=== PATIENT | female | born 1945 | race Hispanic/Latino ===

== ENCOUNTER 2020-02-23 06:26 | Emergency (ER) | payer MEDICARE ==
--- NOTE | 2020-02-23 07:21 | Emergency Department Report ---
ED General Adult HPI - General Chief complaint: Fall Stated complaint: FALL/RT HAND STANDING POSITION Time Seen by Provider: 02/23/20 06:53 Source: EMS Mode of arrival: Ambulatory Limitations: No Limitations - History of Present Illness Initial comments: Patient is a 74-year-old female who is a somewhat poor historian. She admits that she is having frequent falls. Apparently she had home health in the past but not currently. She states that she fell 2 weeks ago and "cracked" her left wrist. She went to her primary care doctor rather than the emergency department at that time. She is wearing a Velcro splint. She states that she also fell and injured her face. Last night she tripped on the way to the bathroom injuring her right hand. She denies any other injury. She specifically denies any back or neck problems. She did not hit her head. She was in her usual state of health when the event occurred. She has no other complaints at the time of my evaluation. However, the triage note does report that the patient felt weak and dizzy. She did not lose consciousness. Thus her history is somewhat variable. -: Gradual Location: right, upper extremity Radiation: non-radiation Severity scale (0 -10): 5 Quality: aching Consistency: intermittent Improves with: none Worsens with: movement Associated Symptoms: denies other symptoms (Or as per triage weak and dizzy) - Related Data Previous Rx's Medication Instructions Recorded Last Taken Type HYDROcodone/APAP 5-325 [[place] 1 each PO Q6HR PRN #10 tablet 04/21/14 Unknown Rx 5/325] Ondansetron [Zofran Odt] 8 mg PO 4XD #20 tab.rapdis 04/21/14 Unknown Rx Prednisone [Prednisone 10 mg 10 mg PO .TAPER #1 tab.ds.pk 04/21/14 Unknown Rx (6-Day Pack, 21 Tabs)] Sulfamethoxazole/Trimethoprim 1 each PO BID #14 tablet 04/21/14 Unknown Rx [Bactrim Ds] traMADoL [Ultram 50 MG tab] 50 mg PO Q8HR PRN #7 tablet 02/23/20 Unknown Rx Allergies Allergy/AdvReac Type Severity Reaction Status Date / Time codeine phosphate Allergy Unknown Verified 04/21/14 08:52 [From Tylenol-Codeine] acetaminophen AdvReac Mild Nausea Verified 04/21/14 15:04 [From Tylenol-Codeine] ED Review of Systems ROS: Stated complaint: FALL/RT HAND STANDING POSITION Other details as noted in HPI ED Past Medical Hx - Past Medical History Hx Hypertension: Yes Hx Diabetes: Yes Hx Psychiatric Treatment: Yes (depression) Additional medical history: high cholesterol - Surgical History Additional Surgical History: tonsillectomy - Social History Smoking Status: Never Smoker Substance Use Type: None - Medications Home Medications: Home Medications Medication Instructions Recorded Confirmed Last Taken Type HYDROcodone/APAP 5-325 [[place] 1 each PO Q6HR PRN #10 tablet 04/21/14 Unknown Rx 5/325] Ondansetron [Zofran Odt] 8 mg PO 4XD #20 tab.rapdis 04/21/14 Unknown Rx Prednisone [Prednisone 10 mg 10 mg PO .TAPER #1 tab.ds.pk 04/21/14 Unknown Rx (6-Day Pack, 21 Tabs)] Sulfamethoxazole/Trimethoprim 1 each PO BID #14 tablet 04/21/14 Unknown Rx [Bactrim Ds] traMADoL [Ultram 50 MG tab] 50 mg PO Q8HR PRN #7 tablet 02/23/20 Unknown Rx ED Physical Exam - General Limitations: No Limitations General appearance: alert, in no apparent distress - Head Head exam: Present: atraumatic, normocephalic - Eye Eye exam: Present: normal appearance, other (Infraorbital resolving ecchymosis on the right no deformity) - ENT ENT exam: Present: mucous membranes moist - Neck Neck exam: Present: normal inspection. Absent: tenderness, meningismus - Respiratory Respiratory exam: Present: normal lung sounds bilaterally. Absent: respiratory distress - Cardiovascular Cardiovascular Exam: Present: regular rate, normal rhythm. Absent: systolic murmur, diastolic murmur, rubs, gallop - GI/Abdominal GI/Abdominal exam: Present: soft, normal bowel sounds. Absent: distended, tenderness, guarding, rebound, rigid - Extremities Exam Extremities exam: Present: other (The right hand is quite swollen to involve the dorsum of the hand and the fingers. Neurovascular exam is grossly intact.) - Back Exam Back exam: Present: normal inspection. Absent: CVA tenderness (R), CVA tend erness (L), muscle spasm, paraspinal tenderness, vertebral tenderness - Neurological Exam Neurological exam: Present: alert, oriented X3, CN II-XII intact. Absent: motor sensory deficit - Psychiatric Psychiatric exam: Present: normal affect, normal mood - Skin Skin exam: Present: warm, dry, intact, ecchymosis (As above). Absent: rash ED Course Vital Signs 02/23/20 02/23/20 02/23/20 06:54 06:56 11:29 Temperature 98.4 F 98.4 F Pulse Rate 77 20 L 88 Respiratory 20 20 20 Rate Blood Pressure 177/75 Blood Pressure 177/75 178/71 [Left] O2 Sat by Pulse 99 99 100 Oximetry - Reevaluation(s) Reevaluation #1: Patient has an elevated BUN and creatinine. She is volume depleted. She will be given IV fluids. 02/23/20 09:34 02/23/20 13:05 Initially, placed in a ulnar gutter splint. However swelling has subsided. Will replace this with a Velcro. Reevaluation #2: Patient now appears much better hydrated. 02/23/20 13:05 Reevaluation #3: Patient tells me she has 2 caregivers at home. 02/23/20 13:07 ED Medical Decision Making - Lab Data Result diagrams: 02/23/20 07:24 02/23/20 07:24 Laboratory Results - last 24 hr 02/23/20 02/23/20 02/23/20 07:24 07:24 07:42 WBC 10.7 RBC 3.93 Hgb 12.0 Hct 35.3 MCV 90 MCH 31 MCHC 34 RDW 12.3 L Plt Count 209 Lymph % (Auto) 11.8 L [place] % (Auto) 6.9 Eos % (Auto) 1.2 Baso % (Auto) 0.7 Lymph # 1.3 [place] # 0.7 Eos # 0.1 Baso # 0.1 Seg Neutrophils % 79.4 H Seg Neutrophils # 8.5 H Sodium 137 Potassium 3.9 Chloride 98.0 Carbon Dioxide 22 Anion Gap 21 BUN 45 H Creatinine 1.8 H Estimated GFR 28 BUN/Creatinine Ratio 25 Glucose 137 H Calcium 9.4 Urine Color Yellow Urine Turbidity Clear Urine pH 5.0 Ur Specific [place] 1.009 Urine Protein 100 mg/dl Urine Glucose (UA) Neg Urine Ketones Neg Urine Blood Mod Urine Nitrite Neg Urine Bilirubin Neg Urine Urobilinogen < 2.0 Ur Leukocyte Esterase Neg Urine WBC (Auto) 1.0 Urine RBC (Auto) 5.0 U Epithel Cells (Auto) 4.0 Urine Bacteria (Auto) 1+ Urine Mucus Few - EKG Data EKG shows normal: sinus rhythm, axis, intervals, QRS complexes Rate: normal - EKG Data Interpretation: nonspecific ST-T wave mar - Radiology Data Radiology results: report reviewed, image reviewed IMPRESSION: The bones are diffusely osteopenic with no gross fracture identifie d. There is mild soft tissue swelling along the dorsum of the hand and there is apparent erosive change along the radial aspect of the index finger PIP joint which could be seen with an inflammatory arthropathy such as gout. There is otherwise relatively mild degenerative arthrosis throughout the hand. The hand is really quite swollen. I am concerned there may be an occult fracture. Critical care attestation.: If time is entered above; I have spent that time in minutes in the direct care of this critically ill patient, excluding procedure time. ED Disposition Clinical Impression: Prerenal azotemia, Volume depletion Sprain of hand, right Qualifiers: Encounter type: initial encounter Qualified Code(s): S63.91XA - Sprain of unspecified part of right wrist and hand, initial encounter Disposition: DC-01 TO HOME OR SELFCARE Is pt being admited?: No Does the pt Need Aspirin: No Condition: Stable Instructions: Hand Sprain (ED), Dehydration (ED) Additional Instructions: Increase fluids. Follow-up with your primary care provider. Follow-up with orthopedic Dr. Oneill. Prescriptions: traMADoL [Ultram 50 MG tab] 50 mg PO Q8HR PRN #7 tablet PRN Reason: Pain Referrals: PRIMARY MD YANNI [Primary Care Provider] - 2-3 Days YVONNE ONEILL MD [Staff Physician] - 3-5 Days Time of Disposition: 13:06
[2020-02-23 08:09] LABS: Bacteria,Urine 1+ /HPF (Negative); Bilirubin,Urine NEG (Negative); Blood,Urine MOD (Negative); Color,Urine Yellow (Yellow); Mucus,Urine FEW /HPF; Urobilinogen,Urine < 2.0 mg/dL (<2.0)
--- NOTE | 2020-02-23 08:13 | XRay Report ---
Right hand-3 views INDICATION: MAIN: trauma/fall. COMPARISON: None. IMPRESSION: The bones are diffusely osteopenic with no gross fracture identified. There is mild soft tissue swelling along the dorsum of the hand and there is apparent erosive change along the radial a spect of the index finger PIP joint which could be seen with an inflammatory arthropathy such as gout . There is otherwise relatively mild degenerative arthrosis throughout the hand. Signer Name: Javier Regalado MD Signed: 02/23/2020 8:09 AM Workstation Name: [id number]
[2020-02-23 08:22] LABS: Basophils # (Auto) 0.1 K/mm3 (0.0-0.1); Basophils % (Auto) 0.7 % (0.0-1.8); Eosinophils # (Auto) 0.1 K/mm3 (0.0-0.4); Eosinophils % (Auto) 1.2 % (0.0-4.3); Hematocrit 35.3 % (30.3-42.9); Lymphocytes # (Auto) 1.3 K/mm3 (1.2-5.4); Lymphocytes % (Auto) 11.8 % (13.4-35.0); Mean Corpuscular HGB Conc 34 % (30-34); Mean Corpuscular Volume 90 fl (79-97); Monocytes # (Auto) 0.7 K/mm3 (0.0-0.8); Monocytes % (Auto) 6.9 % (0.0-7.3); Platelet Count 209 K/mm3 (140-440); Red Blood Count 3.93 M/mm3 (3.65-5.03); Red Cell Distribution Width 12.3 % (13.2-15.2)
[2020-02-23 08:43] LABS: Calcium 9.4 mg/dL (8.4-10.2)
[2020-02-23] MEDS ORDERED: SODIUM CHLORIDE 0.9% 1000 ML 1,000 ML IV ONE (09:25)
[2020-02-23 11:29] VITALS: BP 178/71
[2020-02-23] MEDS ORDERED: traMADol 50 MG TAB PO ONE (12:13)
[2020-02-23] MEDS ORDERED: hydrALAZINE 20 MG/1 ML INJ IV ONE (15:29)
== END 2020-02-23 13:45 | disposition home or self-care (01) ==
LOC: ED 06:26
DX: S63.91XA Sprain of unspecified part of right wrist and hand, initial encounter (principal); R79.89 Other specified abnormal findings of blood chemistry; E86.9 Volume depletion, unspecified; R42 Dizziness and giddiness; I10 Essential (primary) hypertension; E11.9 Type 2 diabetes mellitus without complications; F32.9 Major depressive disorder, single episode, unspecified; Z90.89 Acquired absence of other organs; Z79.899 Other long term (current) drug therapy; Z88.8 Allergy status to other drugs, medicaments and biological substances; Z91.81 History of falling; W01.0XXA Fall on same level from slipping, tripping and stumbling without subsequent striking against object, initial encounter; Y93.89 Activity, other specified; Y92.89 Other specified places as the place of occurrence of the external cause; Y99.8 Other external cause status
CPT/HCPCS: 36415; 80048; 81001; 85025; 93005; 96360; 96361

== ENCOUNTER 2020-09-03 19:00 | Emergency (ER) | payer MEDICARE ==
--- NOTE | 2020-09-03 19:27 | Event Note ---
ED Screening Note ED Screening Note: States she got dizzy and fell Reports she had a brief episode of loss of consciousness No chest pain or shortness of breath She is complaining of headache and lower back pain This initial assessment/diagnostic orders/clinical plan/treatment(s) is/are subject to change based on patients health status, clinical progression and re- assessment by fellow clinical providers in the ED. Further treatment and workup at subsequent clinical providers discretion. Patient/guardian urged not to elope from the ED as their condition may be serious if not clinically assessed and managed. Initial orders include: Labs, EKG, CT
--- NOTE | 2020-09-03 20:27 | Cat Scan Report ---
CT BRAIN: 09/03/2020 INDICATION / CLINICAL INFORMATION: Trauma. COMPARISON: None available. FINDINGS: BRAIN/INTRACRANIAL STRUCTURES: Unenhanced CT images of the brain demonstrate no evidence of acute int racranial abnormality. Ventricles and sulci are prominent in size, consistent with prominent diffuse cerebral atrophy. There is no evidence of acute ischemic injury, hemorrhage, or mass. There are no abnormal extra-axial fluid collections. Atherosclerotic vascular calcifications are present in the distal internal caroti d arteries and vertebral arteries. EXTRACRANIAL STRUCTURES: Unremarkable. IMPRESSION: No acute abnormality. Chronic and age-related changes All CT scans at this location are performed using dose reduction to ALARA by means of automated expos ure control. Signer Name: Cyo Melara MD Signed: 09/03/2020 8:23 PM Workstation Name: [id number]
--- NOTE | 2020-09-03 20:30 | Cat Scan Report ---
. CT CERVICAL SPINE: 09/03/2020 INDICATION / CLINICAL INFORMATION: Trauma. COMPARISON: None available. FINDINGS: CT images of the cervical spine were obtained. Images are evaluated in the axial, coronal, and sagitt al planes. There is no evidence of acute traumatic injury. Degenerative disc changes are present throughout the cervical spine, most pronounced at C3-4. CRANIOCERVICAL JUNCTION: Unremarkable. PARASPINAL STRUCTURES: Unremarkable Incidental note is made of diffuse enlargement of the thyroid consistent with marked goiter. This is only partially included on this cervical spine exam. It appears to have a substernal extension. Incidental note is also made of asymmetric positioning of the vocal cords, suggestive of left vocal c ord paralysis. This may be related to the presence of the large thyroid goiter, although this assessm ent cannot be further evaluated on cervical spine CT. IMPRESSION: No acute abnormality. All CT scans at this location are performed using dose reduction to ALARA by means of automated expos ure control. Signer Name: Coy Melara MD Signed: 09/03/2020 8:26 PM Workstation Name: [id number]
[2020-09-03 20:35] LABS: Basophils # (Auto) 0.1 K/mm3 (0.0-0.1); Basophils % (Auto) 0.3 % (0.0-1.8); Eosinophils # (Auto) 0.2 K/mm3 (0.0-0.4); Eosinophils % (Auto) 1.2 % (0.0-4.3); Hematocrit 32.3 % (30.3-42.9); Hemoglobin 10.3 gm/dl (10.1-14.3); Lymphocytes # (Auto) 1.1 K/mm3 (1.2-5.4); Lymphocytes % (Auto) 6.2 % (13.4-35.0); Mean Corpuscular HGB Conc 32 % (30-34); Mean Corpuscular Volume 91 fl (79-97); Monocytes # (Auto) 0.7 K/mm3 (0.0-0.8); Monocytes % (Auto) 3.7 % (0.0-7.3); Platelet Count 204 K/mm3 (140-440); Red Blood Count 3.54 M/mm3 (3.65-5.03); Red Cell Distribution Width 14.6 % (13.2-15.2)
--- NOTE | 2020-09-03 20:35 | Cat Scan Report ---
CT LUMBAR SPINE: 09/03/2020 INDICATION / CLINICAL INFORMATION: Trauma. COMPARISON: None available. FINDINGS: CT images of the lumbar spine were obtained. Images are evaluated in the axial, coronal, and sagittal planes. Mild right convex scoliosis is present. Mild and moderate degenerative disc and facet changes are pre sent throughout the lumbar spine. There are linear lucency is present through the sacral ala bilaterally, consistent with bilateral sac ral fractures. There are also fractures of the transverse processes of L5 vertebral. PARASPINAL STRUCTURES: Unremarkable. IMPRESSION: Bilateral sacral ala fractures. Bilateral L5 transverse process fractures All CT scans at this location are performed using dose reduction to ALARA by means of automated expos ure control. Signer Name: Coy Melara MD Signed: 09/03/2020 8:30 PM Workstation Name: [id number]
[2020-09-03 20:50] LABS: INR 1.12 (0.87-1.13)
[2020-09-03 21:20] LABS: Albumin 3.1 g/dL (3.9-5); Calcium 9.3 mg/dL (8.4-10.2)
--- NOTE | 2020-09-04 04:08 | Emergency Department Report ---
<ALDO VILLA - Last Filed: 09/04/20 05:30> ED Fall HPI - General Chief Complaint: Fall Stated Complaint: BACK PAIN Time Seen by Provider: 09/03/20 19:26 - Related Data Previous Rx's Medication Instructions Recorded Last Taken Type HYDROcodone/APAP 5-325 [[place] 1 each PO Q6HR PRN #10 tablet 04/21/14 Unknown Rx 5/325] Ondansetron [Zofran Odt] 8 mg PO 4XD #20 tab.rapdis 04/21/14 Unknown Rx Prednisone [Prednisone 10 mg 10 mg PO .TAPER #1 tab.ds.pk 04/21/14 Unknown Rx (6-Day Pack, 21 Tabs)] Sulfamethoxazole/Trimethoprim 1 each PO BID #14 tablet 04/21/14 Unknown Rx [Bactrim Ds] traMADoL [Ultram 50 MG tab] 50 mg PO Q8HR PRN #7 tablet 02/23/20 Unknown Rx Allergies Allergy/AdvReac Type Severity Reaction Status Date / Time codeine phosphate Allergy Unknown Verified 04/21/14 08:52 [From Tylenol-Codeine] acetaminophen AdvReac Mild Nausea Verified 04/21/14 15:04 [From Tylenol-Codeine] ED Past Medical Hx - Medications Home Medications: Home Medications Medication Instructions Recorded Confirmed Last Taken Type HYDROcodone/APAP 5-325 [[place] 1 each PO Q6HR PRN #10 tablet 04/21/14 Unknown Rx 5/325] Ondansetron [Zofran Odt] 8 mg PO 4XD #20 tab.rapdis 04/21/14 Unknown Rx Prednisone [Prednisone 10 mg 10 mg PO .TAPER #1 tab.ds.pk 04/21/14 Unknown Rx (6-Day Pack, 21 Tabs)] Sulfamethoxazole/Trimethoprim 1 each PO BID #14 tablet 04/21/14 Unknown Rx [Bactrim Ds] traMADoL [Ultram 50 MG tab] 50 mg PO Q8HR PRN #7 tablet 02/23/20 Unknown Rx ED Course - Reevaluation(s) Reevaluation #1: 09/04/20 05:31 Morbidly obese female with mechanical fall. Found to have bilateral L5 transverse process fractures, and sacral oneida fractures. These are typically nonoperative. She is moving 4 extremities. However, she is morbidly obese, and not able to ambulate without significant assistance. At the moment, even with a 1 person assist, not able to get up out of a chair/wheelchair. This is likely an unsafe discharge, secondary to obesity, and deconditioning. There may also be an acute pain component present at this time. Laboratory studies show acute on chronic renal insufficiency. She is not hypoxic. Physician early childhood assistant does not suspect acute congestive heart failure. We do not anticipate need for transfer, however, physician early childhood assistant will discuss with orthopedic/trauma at tertiary care facility. If managed services sales consultant advises that emergent transfer is not indicated, which we anticipate, would consider it reasonable to admit this patient to the hospital for supportive care, pain control, management of acute on chronic renal insufficiency, and case management placement, for safe disposition. ED Medical Decision Making - Lab Data Result diagrams: 09/03/20 20:18 09/03/20 20:18 Vital Signs 09/03/20 19:23 Temperature 97.9 F Pulse Rate 76 Respiratory 20 Rate Blood Pressure 130/85 O2 Sat by Pulse 97 Oximetry Lab Results 09/03/20 09/03/20 09/03/20 Range/Units 20:18 20:18 20:18 WBC 18.0 H (4.5-11.0) K/mm3 RBC 3.54 L (3.65-5.03) M/mm3 Hgb 10.3 (10.1-14.3) gm/dl Hct 32.3 (30.3-42.9) % MCV 91 (79-97) fl MCH 29 (28-32) pg MCHC 32 (30-34) % RDW 14.6 (13.2-15.2) % Plt Count 204 (140-440) K/mm3 Lymph % (Auto) 6.2 L (13.4-35.0) % [place] % (Auto) 3.7 (0.0-7.3) % Eos % (Auto) 1.2 (0.0-4.3) % Baso % (Auto) 0.3 (0.0-1.8) % Lymph # (Auto) 1.1 L (1.2-5.4) K/mm3 [place] # (Auto) 0.7 (0.0-0.8) K/mm3 Eos # (Auto) 0.2 (0.0-0.4) K/mm3 Baso # (Auto) 0.1 (0.0-0.1) K/mm3 Seg Neutrophils % 88.6 H (40.0-70.0) % Seg Neutrophils # 15.9 H (1.8-7.7) K/mm3 PT 14.2 (12.2-14.9) Sec. INR 1.12 (0.87-1.13) APTT 31.0 (24.2-36.6) Sec. Sodium 137 (137-145) mmol/L Potassium 4.2 (3.6-5.0) mmol/L Chloride 101.5 (98-107) mmol/L Carbon Dioxide 23 (22-30) mmol/L Anion Gap 17 mmol/L BUN 41 H (7-17) mg/dL Creatinine 3.2 H (0.6-1.2) mg/dL Estimated GFR 14 ml/min BUN/Creatinine Ratio 13 % Glucose 215 H (65-100) mg/dL Calcium 9.3 (8.4-10.2) mg/dL Magnesium 1.90 (1.7-2.3) mg/dL Total Bilirubin 0.30 (0.1-1.2) mg/dL AST 38 (5-40) units/L ALT 22 (7-56) units/L Alkaline Phosphatase 125 (35-129) units/L Total Creatine Kinase 630 H (30-135) units/L Troponin T 0.021 (0.00-0.029) ng/mL NT-Pro-B Natriuret Pep 2591 H (0-900) pg/mL Total Protein 7.2 (6.3-8.2) g/dL Albumin 3.1 L (3.9-5) g/dL Albumin/Globulin Ratio 0.8 % - Radiology Data Radiology results: report reviewed, image reviewed CT LUMBAR SPINE: 09/03/2020 INDICATION / CLINICAL INFORMATION: Trauma. COMPARI SON: None available. FINDINGS: CT images of the lumbar spine were obtained. Images are evaluated in the axial, coronal, and sagittal planes. Mild right convex scoliosis is present. Mild and moderate degenerative disc and facet changes are present throughout the lumbar spine. There are linear lucency is present through the sacral ala bilaterally, consistent with bilateral sacral fractures. There are also fractures of the transverse processes of L5 vertebral. PARASPINAL STRUCTURES: Unremarkable. IMPRESSION: Bilateral sacral ala fractures. Bilateral L5 transverse process fractures All CT scans at this location are performed using dose reduction to ALARA by means of automated expos ure control. Signer Name: Coy Melara MD Signed: 09/03/2020 7:30 PM Workstation Name: [id number] CT BRAIN: 09/03/2020 INDICATION / CLINICAL INFORMATION: Trauma. COMPARISON: None available. FINDINGS: BRAIN/INTRACRANIAL STRUCTURES: Unenhanced CT images of the brain demonstrate no evidence of acute intracranial abnormality. Ventricles and sulci are prominent in size, consistent with prominent diffuse cerebral atrophy. There is no evidence of acute ischemic injury, hemorrhage, or mass. There are no abnormal extra-axial fluid collections. Atherosclerotic vascular calcifications are present in the distal internal carotid arteries and vertebral arteries. EXTRACRANIAL STRUCTURES: Unremarkable. IMPRESSION: No acute abnormality. Chronic and age-related changes All CT scans at this location are performed using dose reduction to ALARA by means of automated exposure control. Signer Name: Coy Melara MD Signed: 09/03/2020 7:23 PM Workstation Name: [id number] . CT CERVICAL SPINE: 09/03/2020 INDICATION / CLINICAL INFORMATION: Trauma. COMPARISON: None available. FINDINGS: CT images of the cervical spine were obtained. Images are evaluated in the axial, coronal, and sagittal planes. There is no evidence of acute traumatic injury. Degenerative disc changes are present throughout the cervical spine, most pronounced at C3-4. CRANIOCERVICAL JUNCTION: Unremarkable. PARASPINAL STRUCTURES: Unremarkable Incidental note is made of diffuse enlargement of the thyroid consistent with marked goiter. This is only partially included on this cervical spine exam. It appears to have a substernal extension. Incidental note is also made of asymmetric positioning of the vocal cords, suggestive of left vocal cord paralysis. This may be related to the presence of the large thyroid goiter, although this assessment cannot be further evaluated on cervical spine CT. IMPRESSION: No acute abnormality. All CT scans at this location are performed using dose reduction to ALARA by means of automated exposure control. Signer Name: Coy Melara MD Signed: 09/03/2020 7:26 PM Workstation Name: [id number] ED Disposition Clinical Impression: Sacral fracture, closed, Lumbar transverse process fracture Disposition: DC/TX-70 ANOTHER TYPE [facility] Condition: Stable Instructions: Transverse Process Fracture, Lumbar Spine Fracture <ISABELLA ACEVEDO - Last Filed: 09/04/20 07:04> ED Fall HPI - General Source: patient Mode of arrival: Stretcher - History of Present Illness Initial Comments: 75-year-old female presents emergency department status post accidental fall while at home walking in the hallway without a walker which she walks with about half the time. States that she grew a little bit lightheaded which is not uncommon for her when she stands up quickly and lost her balance falling backwards onto her buttocks causing pain to multiple areas of the body. Reports no fever, chills, sweats reports no current headache but does have pain to her back hip head and neck region. States that she feels that she may have passed out but is not quite sure MD Complaint: fall -: Sudden Fall Witnessed: no Place Fall Occurred: home Loss of Consciousness: none Prolonged Down Time?: no Symptoms Prior to Fall: none Location: head, back Location - Extremities: Right: Leg Severity: moderate Quality: dull, aching ED Review of Systems ROS: Stated complaint: BACK PAIN Other details as noted in HPI Comment: All other systems reviewed and negative ED Past Medical Hx - Past Medical History Previous Medical History?: Yes Hx Hypertension: Yes Hx Diabetes: Yes Hx Psychiatric Treatment: Yes (depression) Additional medical history: high cholesterol - Surgical History Past Surgical History?: Yes Additional Surgical History: tonsillectomy - Social History Smoking Status: Never Smoker Substance Use Type: None ED Physical Exam - General Limitations: No Limitations General appearance: alert, in no apparent distress - Head Head exam: Present: atraumatic, normocephalic - Eye Eye exam: Present: normal appearance - ENT ENT exam: Present: mucous membranes moist - Neck Neck exam: Present: normal inspection - Respiratory Respiratory exam: Present: normal lung sounds bilaterally. Absent: respiratory distress, wheezes, rales, rhonchi - Cardiovascular Cardiovascular Exam: Present: regular rate, normal rhythm. Absent: systolic mur mur, diastolic murmur, rubs, gallop - GI/Abdominal GI/Abdominal exam: Present: soft, normal bowel sounds - Extremities Exam Extremities exam: Present: normal inspection, normal capillary refill, other (Swelling of her right knee and lower (she suspects mechanical in nature)). Absent: calf tenderness - Back Exam Back exam: Present: normal inspection, tenderness, vertebral tenderness. Absent: CVA tenderness (R), CVA tenderness (L) - Neurological Exam Neurological exam: Present: alert, oriented X3, CN II-XII intact, normal gait. Absent: reflexes normal - Psychiatric Psychiatric exam: Present: normal affect, normal mood - Skin Skin exam: Present: warm, dry, intact, normal color. Absent: rash ED Course Vital Signs 09/03/20 19:23 Temperature 97.9 F Pulse Rate 76 Respiratory 20 Rate Blood Pressure 130/85 O2 Sat by Pulse 97 Oximetry - Consultations Consultation #1: 09/04/20 06:55 Discussed case with [facility] Dr. Rodriguez home recommended transfer to [facility] for further treatment Consultation #2: 09/04/20 06:55 Case was discussed my attending onset of did have [id number] with patient ED Medical Decision Making - Lab Data Result diagrams: 09/03/20 20:18 09/03/20 20:18 - Medical Decision Making 75-year-old morbidly obese female presents emergency department complaining of a fall onto her buttocks resulting in back pain after she was standing up trying to walk and had a bout of lightheadedness. She was found to have bilateral sacral oneida fractures and transverse process fractures in conjunction with some renal insufficiency. Discussed the case with [facility] Dr. Rodriguez recommended transfer to his facility. Bernadine is morbidly obese with past medical history of hypertension and diabetes. To have renal sufficiency on her previous visit which appears to be worsening today. I did make this aware to [facility] as well for her transfer. Her BNP is elevated however do not suspect an CHF due to the findings on physical examination and lack of respiratory symptoms. She reports no orthopnea she reports no shortness of breath she reports no hemoptysis she reports no hematemesis she reports no chest pain. Although she did have a bout of dizziness she did express that that was upon her standing and that it is not uncommon. Critical care attestation.: If time is entered above; I have spent that time in minutes in the direct care of this critically ill patient, excluding procedure time. ED Disposition Is pt being admited?: No Does the pt Need Aspirin: No
--- NOTE | 2020-09-04 08:05 | XRay Report ---
CHEST 1 VIEW 7:44 AM INDICATION / CLINICAL INFORMATION: Dizziness. COMPARISON: None available. FINDINGS: SUPPORT DEVICES: None. HEART / MEDIASTINUM: The heart size is normal. The aorta is elongated and tortuous without aneurysm. LUNGS / PLEURA: There is a large opacity in the right lower thorax with obscuration of the right hear t border, but not the right hemidiaphragm. No definite pleural effusion. The left lung is clear. No p neumothorax. ADDITIONAL FINDINGS: No significant additional findings. IMPRESSION: Large opacity in the right lower hemithorax may be related to right middle lobe or medias tinal mass. CT of the chest with intravenous contrast may be helpful in further characterization. Signer Name: Darien Law MD Signed: 09/04/2020 8:01 AM Workstation Name: [id number]
[2020-09-04 09:59] VITALS: BP 157/64
== END 2020-09-04 10:03 | disposition other institution (70) ==
LOC: ED 19:00
DX: S32.10XA Unspecified fracture of sacrum, initial encounter for closed fracture (principal); S32.009A Unspecified fracture of unspecified lumbar vertebra, initial encounter for closed fracture; Z79.899 Other long term (current) drug therapy; Z88.6 Allergy status to analgesic agent; Z88.8 Allergy status to other drugs, medicaments and biological substances; W18.30XA Fall on same level, unspecified, initial encounter; Y93.89 Activity, other specified; Y92.098 Other place in other non-institutional residence as the place of occurrence of the external cause; Y99.8 Other external cause status
CPT/HCPCS: 36415; 70450; 71045; 72125; 72131; 80053; 82550; 83735; 83880; 84484; 85025; 85610; 85730; 93005